=== PATIENT | male | born 1980 | race Caucasian/White ===

== ENCOUNTER 2022-11-13 07:02 | Outpatient (OUT) | payer BC, SELFPAY ==
--- NOTE | 2022-11-13 | CT_ITS ---
[address] [address] Patient Name: NELLIE RUANO MRN: [id number] date: 1980 Sex: M Assigned Patient Location: CT Current Patient Location: CT Accession/Order Number: [id number] Exam Date: 11/13/2022 08:05 Report Date: 11/13/2022 13:31 At the request of: RUTHY WHITESIDE Procedure: CT abdomen pelvis wo/w con EXAM: CT abdomen pelvis wo/w con HISTORY: LEFT LOWER QUADRANT PAIN COMPARISON: CT abdomen pelvis 04/24/2019 TECHNIQUE: Images without and with intravenous contrast in the portal venous phase. With oral contrast TECHNIQUE: CT abdomen and pelvis. Helically acquired axial images of the abdomen and pelvis from the diaphragm to the iliac crest and the iliac crest to the symphysis pubis. Sagittal and coronal multiplanar reconstructions. The examination was performed 100 cc Omnipaque 300 IV. With oral contrast Dose reduction techniques were achieved by using automated exposure control and/or adjustment of mA and/or kV according to patient size and/or use of iterative reconstruction technique. COMPARISON: CT abdomen and pelvis 04/24/2019 FINDINGS: LUNG BASES/LOWER CHEST: No acute findings LIVER: Moderate diffuse fatty infiltration of the liver. No focal lesions BILIARY TREE/GALLBLADDER: There is no CT evidence of acute cholecystitis. No evidence of intrahepatic biliary dilatation. PANCREAS:There is no definite abnormality. SPLEEN: Normal ADRENAL GLANDS: No evidence of an adrenal lesion. KIDNEYS: Nonobstructive calculus left kidney midportion measures 2 mm. No hydronephrosis. VESSELS: Calcification of the abdominal aorta. No aneurysm LYMPH NODES: No evidence of significantly enlarged lymph nodes. GI Tract: No bowel dilatation to suggest obstruction. The terminal ileum is normal. The appendix is not visualized. No evidence for appendicitis PERITONEUM: No free fluid. No free air. PELVIS AND REPRODUCTIVE ORGANS: No abnormality within the visualized reproductive organs. BLADDER:The urinary bladder is unremarkable. ABDOMINAL WALL: Tiny fat-containing right inguinal hernia. Tiny fat-containing anterior abdominal wall hernia just above the umbilicus with mouth hernia measuring 5 mm BONES: No acute findings CT/CT abdomen pelvis wo/w con IMPRESSION: No acute abnormality. Fatty infiltration of the liver Nonobstructive punctate left renal calculus. Electronically authenticated by: JEFFERSON TERRELL Date: 11/13/2022 13:31
== END 2022-11-13 07:03 | disposition home or self-care (01) ==
LOC: CT 07:02
PROVIDERS: Visit Provider Physician Assistant
DX: R10.32 Left lower quadrant pain (principal); R19.8 Other specified symptoms and signs involving the digestive system and abdomen; M62.08 Separation of muscle (nontraumatic), other site
CPT/HCPCS: 74178; Q9967

== ENCOUNTER 2024-09-23 18:08 | Emergency (ER) | payer BC, SELFPAY ==
[2024-09-23] VITALS (32 sets, daily range): BP systolic 124–162; BP diastolic 78–95; PULSE 82–109; TEMP 37.6; O2SAT 93–98; BMI 33.3
--- NOTE | 2024-09-23 18:16 | ECG_ITS ---
The [facility] [place] Test Date: 2024-09-23 Pat Name: NELLIE RUANO Department: Room: - Gender: Male [employer] Project [employer]: : 1980 Requested By: [id number] Order Number: [id number] Reading MD: RANDY HEARD M.D. Measurements Intervals Camilla Rate: 104 P: -30 MD: 120 QRS: 71 QRSD: 96 T: 28 QT: 308 QTc: 368 Interpretive Statements 1120 Sinus tachycardia Otherwise normal ECG Compared to ECG 04/23/2019 23:15:49 No significant changes Electronically Signed On 09-24-2024 20:29:08 EDT by RANDY HEARD M.D.
--- NOTE | 2024-09-23 18:16 | XR_ITS ---
The [address] [address] Patient Name: NELLIE RUANO MRN: [id number] date: 1980 Sex: M Assigned Patient Location: ED.MAIN Current Patient Location: ED.MAIN Accession/Order Number: [id number] Exam Date: 09/23/2024 18:53 Report Date: 09/23/2024 18:53 At the request of: KITTY MART Procedure: XR chest 1V Plain film chest Single view HISTORY: Mid chest pain starting yesterday COMPARISON: None FINDINGS: SUPPORT DEVICES: None POSTSURGICAL CHANGES: None HEART: Within normal limits PULMONARY LEEANN: Within normal limits MEDIASTINUM: Unremarkable LUNGS AND PLEURA: No acute lung process, pleural effusion or pneumothorax identified. BONY STRUCTURES: Intact ADDITIONAL FINDINGS None XR/XR chest 1V IMPRESSION: No acute process. Impression dictated by: Omar Alonso M.D. 09/23/2024 6:53 PM Dictation Location: [facility] Electronically authenticated by: [id number] Y Date: 09/23/2024 18:53
--- NOTE | 2024-09-23 18:19 | ED.GENADUL1 ---
Documented by User: BARRON Cobb 09/23/24 21:02 HPI HPI - General Adult General Chief complaint: Chest Pain Stated complaint: CHEST DISCOMFORT Time Seen by Provider: 09/23/24 18:09 Source: patient Mode of arrival: walk-in Limitations: no limitations History of Present Illness HPI narrative: Patient is a 44-year-old male presents to the ER with concerns of chest and upper mid back pain. Patient states symptoms started yesterday in the morning when he woke up. He denies any alcohol use and states he has been resting most of the weekend taking it easy. He last ate around 2 or 3 PM denies any nausea vomiting or diarrhea. He denies any shortness of breath but notes discomfort in his mid upper back with a deep breath. Patient states the pain in the front of his chest is very mild and hard to describe 1/10.. Pain does radiate through to his back which he describes as an achy sensation 3/10. Notes the discomfort is just enough to interfere with his sleep and he did not sleep well last night. He denies any shortness of breath on exertion or other symptoms such as recent illness or fever. States he quit smoking 2 or 3 years ago and does not drink alcohol. Patient reports no pertinent history regarding his mother's medical history but states his father did have a heart attack in his late 40s. Lives in [place] and works on the [employer] but has not done any long travels or flights denies any recent surgeries. Radiation: Reports back Severity: mild Quality: Reports aching Pain Consistency: Reports constant Associated symptoms: Reports chest pain; Denies cough, diaphoresis, fever/chills, headaches, loss of appetite, malaise, nausea/vomiting, rash or seizure Treatments prior to arrival: Reports none Related Data Home Medications ?Medication ?Instructions ?Recorded ?Confirmed cetirizine 10 mg tablet (24Hour 10 mg PO DAILY 09/23/24 09/23/24 Allergy) famotidine 20 mg tablet (Acid-Pep) 20 mg PO DAILY 09/23/24 09/23/24 lisinopril 20 mg tablet 20 mg PO DAILY 09/23/24 09/23/24 montelukast 10 mg tablet 10 mg PO HS 09/23/24 09/23/24 Allergies Allergy/AdvReac Type Severity Reaction Status Date / Time ibuprofen AdvReac Severe Anaphylaxis Verified 09/23/24 18:15 Opioid HPI Opioid Management Most Recent Opioid Data: Last Pain Scale 1 Today, 18:25 Last ED Pain Assessment Today, 18:25 Review of Systems ROS Constitutional Denies: fever or chills Eyes Denies: change in vision or blurry vision Ears, nose, mouth, and throat Denies: throat pain or neck pain Cardiovascular Reports: chest pain; Denies: palpitations, edema, swelling of feet/ankles, lightheadedness or shortness of breath with exertion Respiratory Denies: shortness of breath or cough Gastrointestinal Denies: abdominal pain, nausea, vomiting or diarrhea Genitourinary Denies: painful urination Musculoskeletal Reports: back pain; Denies: neck pain, extremity pain, extremity swelling or joint pain Integumentary/Breast Denies: rash, itching, redness or skin pain Neurological Denies: headache or numbness in extremities Psychiatric Denies: anxiety or mood swings Endocrine Denies: excessive urination PFSH PFSH Social History Little interest or pleasure in doing things: not at all Feeling down, depressed, or hopeless: not at all Exam Narrative Exam Narrative: Nurses notes and vital signs reviewed and patient is not hypoxic. General: The patient appears well and in no apparent distress. Patient is resting comfortably on cart. Skin: Warm, dry, no pallor noted. Mild diffuse erythema easily blanchable consistent with sunburn. Head: Normocephalic, atraumatic Neck: Supple, trachea mid-line, no tenderness, no lymphadenopathy Eye: Pupils are equal, round and reactive to light, EOMI Ears, Nose, Mouth, and Throat: External exam unremarkable Cardiovascular: Regular Rate and Rhythm Respiratory: Patient is in no distress, no accessory muscle use, lungs are clear to auscultation, no wheezing, rales or rhonchi. Chest Wall: no tenderness, patient notes pain in his mid thoracic back with deep breath Back: non-tender, no CVA tenderness Musculoskeletal: normal ROM, no tenderness, no swelling GI: Normal bowel sounds, no tenderness to palpation, no masses appreciated. No rebound, guarding, or rigidity noted. Nontender easily reducible umbilical hernia Neurological: A&O x4 Psychiatric: Cooperative Constitutional Vital Signs, click to edit/add: Last Vital Signs Temp 99.6 F 09/23/24 18:11 Pulse 85 09/23/24 22:30 Resp 20 09/23/24 22:30 BP 132/93 H 09/23/24 22:30 Pulse Ox 95 09/23/24 22:30 O2 Del Method Room Air 09/23/24 18:24 Course Vital Signs Vital signs: Vital Signs Temperature 99.6 F 09/23/24 18:11 Pulse Rate 90 09/23/24 18:11 Respiratory Rate 18 09/23/24 18:11 Blood Pressure 160/95 H 09/23/24 18:11 Pulse Oximetry 98 09/23/24 18:11 Oxygen Delivery Method Room Air 09/23/24 18:11 Temperature 99.6 F 09/23/24 18:11 Pulse Rate 85 09/23/24 22:30 Respiratory Rate 20 09/23/24 22:30 Blood Pressure 132/93 H 09/23/24 22:30 Pulse Oximetry 95 09/23/24 22:30 Oxygen Delivery Method Room Air 09/23/24 18:24 Medical Decision Making MDM Narrative Medical decision making narrative: Patient reports a history of anaphylaxis to Motrin we will hold on aspirin at this time. He is given Tylenol GI cocktail and Pepcid for his symptoms. He reports compliance with his medications. Labs pending. Patient appears in no distress with good color sitting up readily compensating at the bedside. States he has been drinking a lot of water and Gatorade Zero to stay hydrated in the heat. Patient reevaluated at 7:20 PM. He reports pain is tolerable declines need for additional pain medications but unsure of what was provided which gave him any relief. He gets most comfortable by sitting up and not laying on his back. He denies any paresthesias in the lower extremities. We discussed his laboratory studies showing a slightly elevated lipase and total bili and white blood cell count lactic acid within normal limits. He still has his gallbladder and I was able to review prior CT of abdomen and pelvis with his history of kidney stones. Patient agreeable to CT with contrast today for further evaluation into his symptoms given continued tenderness in the epigastric region and mid thoracic back. Pt's blood pressure also improved from arrival. he appears in no distress. No I am good. when offered additional pain control . Patient reevaluated after returning from CT, he is still comfortable denies any increase in pain and has family now at the bedside. We discussed his medical history and patient admits that he is a type II diabetic but just stopped taking his diabetes medications. I just didn't go back on them. We discussed he has some ketones in his urine elevated blood sugar and glucose in his urine. We discussed the potential effects on this with dehydration and his symptoms, likely pancreatitis from untreated diabetes. He is given a liter fluid bolus and encouraged to discuss with his PCP about restarting medication he had previously been on metformin and then tried Ozempic. Patient states he has not been on this for several months and we are strongly recommend diabetic diet and close follow up to PCP to discuss tx. and treatment options: The patient is to followup with primary care physician in next 2-3 days or to return to the emergency department should any of the signs or symptoms worsen or new symptoms develop. Patient had questions answered. The patient agrees with the following Diagnosis and Treatment plan and the patient will be discharged home. Lab Data Lab results reviewed: Yes I reviewed the patient's lab results Labs: Lab Results 09/23/24 09/23/24 09/23/24 Range/Units 18:20 19:45 20:04 WBC 13.5 H (4.0-11.0) 10^3/uL RBC 6.65 H (4.70-6.10) 10^6/uL Hgb 19.0 H (14.0-18.0) g/dL Hct 53.9 (42.0-54.0) % MCV 81.1 (80.0-94.0) fL MCH 28.6 (25.9-34.0) pg MCHC 35.3 H (29.9-35.2) g/dL RDW 12.0 (11.0-15.0) % Plt Count 257 (150-450) 10^3/uL MPV 9.7 (9.5-13.5) fL Neut % (Auto) 68.2 (43.0-75.0) % Lymph % (Auto) 19.7 L (20.5-60.0) % [place] % (Auto) 7.9 (1.7-12.0) % Eos % (Auto) 3.1 (0.9-7.0) % Baso % (Auto) 0.7 (0.2-2.0) % Neut # (Auto) 9.2 H (1.4-6.5) 10^3/uL Lymph # (Auto) 2.7 (1.2-3.8) 10^3/uL [place] # (Auto) 1.1 H (0.3-0.8) 10^3/uL Eos # (Auto) 0.4 (0.0-0.7) 10^3/uL Baso # (Auto) 0.1 (0.0-0.1) 10^3/uL Abs Immat Gran (auto) 0.05 H (0.00-0.03) 10^3/uL Imm/Tot Granulo (auto) 0.4 (0.0-0.5) % D-Dimer 0.36 (<=0.59) mg/L FEU Sodium 139 (136-145) mmol/L Potassium 4.0 (3.5-5.1) mmol/L Chloride 101 (98-107) mmol/L Carbon Dioxide 28.1 (21.0-32.0) mmol/L Anion Gap 13.9 BUN 13.0 (7.0-18.0) mg/dL Creatinine 1.02 (0.70-1.30) mg/dL Est GFR ( Amer) >60 (>=60 mL/min/1.73m^2) Est GFR (Non-Af Amer) >60 (>=60 mL/min/1.73m^2) BUN/Creatinine Ratio 12.7 Glucose 212 H (74-106) mg/dL Lactate 1.1 (0.4-2.0) mmol/L Calcium 9.3 (8.5-10.1) mg/dL Total Bilirubin 1.3 H (0.2-1.0) mg/dL AST 17 (15-37) U/L ALT 29 (16-63) U/L Alkaline Phosphatase 96 (46-116) U/L Troponin I High Sens 5.7 5.3 (4.0-76.1) pg/mL NT-Pro-B Natriuret Pep 9.0 (<=450.0) pg/mL Total Protein 7.6 (6.4-8.2) g/dL Albumin 4.1 (3.4-5.0) g/dL Globulin 3.5 g/dL Albumin/Globulin Ratio 1.2 Amylase 35 (25-115) U/L Lipase 89.0 H (16.0-77.0) U/L Urine Color Yellow (YELLOW) Urine Clarity Clear (CLEAR) Urine pH 6.0 (5.0-9.0) Ur Specific [place] 1.025 (1.005-1.025) Urine Protein Trace (NEG/TRACE) mg/dL Urine Glucose (UA) 500 A (NEGATIVE) mg/dL Urine Ketones 15 A (NEGATIVE) mg/dL Urine Occult Blood Negative (NEGATIVE) Urine Nitrite Negative (NEGATIVE) Urine Bilirubin Negative (NEGATIVE) Urine Urobilinogen 1.0 (0.2-1.0) EU/dL Ur Leukocyte Esterase Negative (NEGATIVE) Urine RBC None seen (0-2) #/HPF Urine WBC 0-2 A (NONE SEEN) #/HPF Ur Squamous Epith Cells None seen (NONE/RARE) #/LPF Urine Crystals None seen (None Seen) #/HPF Urine Bacteria None seen (NONE SEEN) #/HPF Urine Casts None seen (NONE SEEN) #/LPF Urine Mucus Trace A (NONE SEEN) Ur Culture Indicated? No Acetone, Qual Negative (NEGATIVE) Imaging Data Chest x-ray: Radiologist's impression: ITS Impressions Chest X-Ray 09/23/24 18:16 IMPRESSION: No acute process. Impression dictated by: Omar Alonso M.D. 09/23/2024 6:53 PM Dictation Location: [place] [address] Electronically authenticated by: [id number] Y Date: 09/23/2024 18:53 ECG Data Attestation: I personally reviewed and interpreted this ECG as follows: Interpretation: EKG interpretation: Emergency Department physician interpretation, sinus tachycardia at 104 BPM, no ectopy, no ST segment elevation, normal axis. Discharge Plan Discharge Chief Complaint: Chest Pain Clinical Impression: Pancreatitis, Diabetes, Non compliance w medication regimen Patient Disposition: Home, Self-Care Condition: Good Prescriptions / Home Meds: No Action famotidine [Acid-Pep] 20 mg tablet 20 mg PO DAILY cetirizine [24Hour Allergy] 10 mg tablet 10 mg PO DAILY lisinopril 20 mg tablet 20 mg PO DAILY montelukast 10 mg tablet 10 mg PO HS Print Language: Guatemalan Instructions: Pancreatitis (ED), Diabetic Hyperglycemia (ED) Additional Instructions: Follow Diabetic diet. Continue to avoid alcohol. Contact PCP on Tuesday to discuss medication and symptoms. Referrals: Myrna Angulo NP [Primary Care Provider, Family Practice] - As soon as possible Documented by User: Porfirio Peralta MD 09/23/24 22:47 HPI HPI - General Adult General Chief complaint: Chest Pain Stated complaint: CHEST DISCOMFORT Time Seen by Provider: 09/23/24 18:09 Related Data Home Medications ?Medication ?Instructions ?Recorded ?Confirmed cetirizine 10 mg tablet (24Hour 10 mg PO DAILY 09/23/24 09/23/24 Allergy) famotidine 20 mg tablet (Acid-Pep) 20 mg PO DAILY 09/23/24 09/23/24 lisinopril 20 mg tablet 20 mg PO DAILY 09/23/24 09/23/24 montelukast 10 mg tablet 10 mg PO HS 09/23/24 09/23/24 Allergies Allergy/AdvReac Type Severity Reaction Status Date / Time ibuprofen AdvReac Severe Anaphylaxis Verified 09/23/24 18:15 Opioid HPI Opioid Management Most Recent Opioid Data: Last Pain Scale 1 Today, 18:25 Last ED Pain Assessment Today, 18:25 PFSH PFSH Social History Little interest or pleasure in doing things: not at all Feeling down, depressed, or hopeless: not at all Exam Constitutional Vital Signs, click to edit/add: Last Vital Signs Temp 99.6 F 09/23/24 18:11 Pulse 85 09/23/24 22:30 Resp 20 09/23/24 22:30 BP 132/93 H 09/23/24 22:30 Pulse Ox 95 09/23/24 22:30 O2 Del Method Room Air 09/23/24 18:24 Course Vital Signs Vital signs: Vital Signs Temperature 99.6 F 09/23/24 18:11 Pulse Rate 90 09/23/24 18:11 Respiratory Rate 18 09/23/24 18:11 Blood Pressure 160/95 H 09/23/24 18:11 Pulse Oximetry 98 09/23/24 18:11 Oxygen Delivery Method Room Air 09/23/24 18:11 Temperature 99.6 F 09/23/24 18:11 Pulse Rate 85 09/23/24 22:30 Respiratory Rate 20 09/23/24 22:30 Blood Pressure 132/93 H 09/23/24 22:30 Pulse Oximetry 95 09/23/24 22:30 Oxygen Delivery Method Room Air 09/23/24 18:24 Medical Decision Making MDM Narrative Medical decision making narrative: Patient reports a history of anaphylaxis to Motrin we will hold on aspirin at this time. He is given Tylenol GI cocktail and Pepcid for his symptoms. He reports compliance with his medications. Labs pending. Patient appears in no distress with good color sitting up readily compensating at the bedside. States he has been drinking a lot of water and Gatorade Zero to stay hydrated in the heat. Patient reevaluated at 7:20 PM. He reports pain is tolerable declines need for additional pain medications but unsure of what was provided which gave him any relief. He gets most comfortable by sitting up and not laying on his back. He denies any paresthesias in the lower extremities. We discussed his laboratory studies showing a slightly elevated lipase and total bili and white blood cell count lactic acid within normal limits. He still has his gallbladder and I was able to review prior CT of abdomen and pelvis with his history of kidney stones. Patient agreeable to CT with contrast today for further evaluation into his symptoms given continued tenderness in the epigastric region and mid thoracic back. Pt's blood pressure also improved from arrival. he appears in no distress. No I am good. when offered additional pain control . Patient reevaluated after returning from CT, he is still comfortable denies any increase in pain and has family now at the bedside. We discussed his medical history and patient admits that he is a type II diabetic but just stopped taking his diabetes medications. I just didn't go back on them. We discussed he has some ketones in his urine elevated blood sugar and glucose in his urine. We discussed the potential effects on this with dehydration and his symptoms, likely pancreatitis from untreated diabetes. He is given a liter fluid bolus and encouraged to discuss with his PCP about restarting medication he had previously been on metformin and then tried Ozempic. Patient states he has not been on this for several months and we are strongly recommend diabetic diet and close follow up to PCP to discuss tx. and treatment options: The patient is to followup with primary care physician in next 2-3 days or to return to the emergency department should any of the signs or symptoms worsen or new symptoms develop. Patient had questions answered. The patient agrees with the following Diagnosis and Treatment plan and the patient will be discharged home. patient is requesting to go home. He is feeling better. CT with findings of early mild pancreatitis. Discussed results with the patient Lab Data Labs: Lab Results 09/23/24 09/23/24 09/23/24 Range/Units 18:20 19:45 20:04 WBC 13.5 H (4.0-11.0) 10^3/uL RBC 6.65 H (4.70-6.10) 10^6/uL Hgb 19.0 H (14.0-18.0) g/dL Hct 53.9 (42.0-54.0) % MCV 81.1 (80.0-94.0) fL MCH 28.6 (25.9-34.0) pg MCHC 35.3 H (29.9-35.2) g/dL RDW 12.0 (11.0-15.0) % Plt Count 257 (150-450) 10^3/uL MPV 9.7 (9.5-13.5) fL Neut % (Auto) 68.2 (43.0-75.0) % Lymph % (Auto) 19.7 L (20.5-60.0) % [place] % (Auto) 7.9 (1.7-12.0) % Eos % (Auto) 3.1 (0.9-7.0) % Baso % (Auto) 0.7 (0.2-2.0) % Neut # (Auto) 9.2 H (1.4-6.5) 10^3/uL Lymph # (Auto) 2.7 (1.2-3.8) 10^3/uL [place] # (Auto) 1.1 H (0.3-0.8) 10^3/uL Eos # (Auto) 0.4 (0.0-0.7) 10^3/uL Baso # (Auto) 0.1 (0.0-0.1) 10^3/uL Abs Immat Gran (auto) 0.05 H (0.00-0.03) 10^3/uL Imm/Tot Granulo (auto) 0.4 (0.0-0.5) % D-Dimer 0.36 (<=0.59) mg/L FEU Sodium 139 (136-145) mmol/L Potassium 4.0 (3.5-5.1) mmol/L Chloride 101 (98-107) mmol/L Carbon Dioxide 28.1 (21.0-32.0) mmol/L Anion Gap 13.9 BUN 13.0 (7.0-18.0) mg/dL Creatinine 1.02 (0.70-1.30) mg/dL Est GFR ( Amer) >60 (>=60 mL/min/1.73m^2) Est GFR (Non-Af Amer) >60 (>=60 mL/min/1.73m^2) BUN/Creatinine Ratio 12.7 Glucose 212 H (74-106) mg/dL Lactate 1.1 (0.4-2.0) mmol/L Calcium 9.3 (8.5-10.1) mg/dL Total Bilirubin 1.3 H (0.2-1.0) mg/dL AST 17 (15-37) U/L ALT 29 (16-63) U/L Alkaline Phosphatase 96 (46-116) U/L Troponin I High Sens 5.7 5.3 (4.0-76.1) pg/mL NT-Pro-B Natriuret Pep 9.0 (<=450.0) pg/mL Total Protein 7.6 (6.4-8.2) g/dL Albumin 4.1 (3.4-5.0) g/dL Globulin 3.5 g/dL Albumin/Globulin Ratio 1.2 Amylase 35 (25-115) U/L Lipase 89.0 H (16.0-77.0) U/L Urine Color Yellow (YELLOW) Urine Clarity Clear (CLEAR) Urine pH 6.0 (5.0-9.0) Ur Specific [place] 1.025 (1.005-1.025) Urine Protein Trace (NEG/TRACE) mg/dL Urine Glucose (UA) 500 A (NEGATIVE) mg/dL Urine Ketones 15 A (NEGATIVE) mg/dL Urine Occult Blood Negative (NEGATIVE) Urine Nitrite Negative (NEGATIVE) Urine Bilirubin Negative (NEGATIVE) Urine Urobilinogen 1.0 (0.2-1.0) EU/dL Ur Leukocyte Esterase Negative (NEGATIVE) Urine RBC None seen (0-2) #/HPF Urine WBC 0-2 A (NONE SEEN) #/HPF Ur Squamous Epith Cells None seen (NONE/RARE) #/LPF Urine Crystals None seen (None Seen) #/HPF Urine Bacteria None seen (NONE SEEN) #/HPF Urine Casts None seen (NONE SEEN) #/LPF Urine Mucus Trace A (NONE SEEN) Ur Culture Indicated? No Acetone, Qual Negative (NEGATIVE) Imaging Data Chest x-ray: Radiologist's impression: ITS Impressions Chest X-Ray 09/23/24 18:16 IMPRESSION: No acute process. Impression dictated by: Omar Alonso M.D. 09/23/2024 6:53 PM Dictation Location: [employer] Electronically authenticated by: [id number] Y Date: 09/23/2024 18:53 Discharge Plan Discharge Chief Complaint: Chest Pain Clinical Impression: Pancreatitis, Diabetes, Non compliance w medication regimen Patient Disposition: Home, Self-Care Condition: Good Prescriptions / Home Meds: No Action famotidine [Acid-Pep] 20 mg tablet 20 mg PO DAILY cetirizine [24Hour Allergy] 10 mg tablet 10 mg PO DAILY lisinopril 20 mg tablet 20 mg PO DAILY montelukast 10 mg tablet 10 mg PO HS Print Language: Guatemalan Instructions: Pancreatitis (ED), Diabetic Hyperglycemia (ED) Additional Instructions: Follow Diabetic diet. Continue to avoid alcohol. Contact PCP on Tuesday to discuss medication and symptoms. Referrals: Myrna Angulo NP [Primary Care Provider, Family Practice] - As soon as possible
[2024-09-23 18:33] LABS: Hematocrit 53.9 % (42.0-54.0); Hemoglobin 19.0 g/dL (14.0-18.0); Immature Granulocytes Abs Auto 0.05 10^3/uL (0.00-0.03); Immature Granulocytes Pct Auto 0.4 % (0.0-0.5); Lymphocytes Absolute Auto 2.7 10^3/uL (1.2-3.8); Mean Corpuscular HGB Conc 35.3 g/dL (29.9-35.2); Mean Corpuscular Hemoglobin 28.6 pg (25.9-34.0); Mean Corpuscular Volume 81.1 fL (80.0-94.0); Platelet Count 257 10^3/uL (150-450); Red Blood Count 6.65 10^6/uL (4.70-6.10); White Blood Count 13.5 10^3/uL (4.0-11.0)
[2024-09-23] MEDS: FAMOTIDINE/PF 20 MG/2 ML VIAL IV (18:34)
[2024-09-23] MEDS: ACETAMINOPHEN 500 MG TABLET 1000 MG PO (18:34)
[2024-09-23] MEDS: lidocaine HCL 15 ML, MAG HYDROX/ALUMINUM HYD/SIMETH 30 ML, HYOSCYAMINE SULFATE 0.25 MG PO (18:35)
[2024-09-23 18:51] LABS: Alanine Aminotransferase 29 U/L (16-63); Albumin Globulin Ratio 1.2; Albumin Level 4.1 g/dL (3.4-5.0); Alkaline Phosphatase 96 U/L (46-116); Anion Gap 13.9; Aspartate Amino Transferase 17 U/L (15-37); Blood Urea Nitrogen 13.0 mg/dL (7.0-18.0); Calcium 9.3 mg/dL (8.5-10.1); Carbon Dioxide 28.1 mmol/L (21.0-32.0); Chloride 101 mmol/L (98-107); Estimated GFR (African America >60 (>=60 mL/min/1.73m^2); Estimated GFR (Non-African Ame >60 (>=60 mL/min/1.73m^2); Globulin 3.5 g/dL; Glucose 212 mg/dL (74-106); Potassium 4.0 mmol/L (3.5-5.1); Sodium 139 mmol/L (136-145); Total Protein 7.6 g/dL (6.4-8.2)
[2024-09-23 18:53] LABS: Lactate/Lactic Acid 1.1 mmol/L (0.4-2.0); Lipase 89.0 U/L (16.0-77.0)
[2024-09-23 19:15] LABS: NT Pro B Type Natriuretic Pept 9.0 pg/mL (<=450.0)
[2024-09-23 19:28] LABS: Amylase 35 U/L (25-115)
[2024-09-23 19:51] LABS: Glucose Urine UA 500 mg/dL (NEGATIVE)
[2024-09-23 19:58] LABS: Cast Seen? NONE SEEN #/LPF (NONE SEEN); Crystals Seen? None Seen #/HPF (None Seen); Urine Culture Indicated NO
[2024-09-23] MEDS: 0.9 % SODIUM CHLORIDE 1,000 ML 999 ML IV (20:00)
--- NOTE | 2024-09-23 22:24 | PC.NURSE ---
Marisol Mcgregor contacted. They states they will inform that we are looking for CT results.
== END 2024-09-23 22:50 | disposition home or self-care (01) ==
PROVIDERS: Personal Emergency Response Attendant; Emergency Provider Internal Medicine; PCP Nurse Practitioner
DX: K85.90 Acute pancreatitis without necrosis or infection, unspecified (principal); Z87.891 Personal history of nicotine dependence; Z87.442 Personal history of urinary calculi; E11.9 Type 2 diabetes mellitus without complications; T38.3X6A Underdosing of insulin and oral hypoglycemic [antidiabetic] drugs, initial encounter; Z91.128 Patient's intentional underdosing of medication regimen for other reason
CPT/HCPCS: 36415; 71045; 74177; 80053; 81001; 82009; 82150; 83605; 83690; 83880; 84484; 85025; 85378; 93005; 96374; 99285; J3490; Q9967